=== PATIENT | female | born 1960 | race Asian ===

== ENCOUNTER 2018-01-21 22:34 | Emergency (ER) | payer SELFPAY ==
[2018-01-22] MEDS: SODIUM CHLORIDE 0.9% 1L BAG IV* (00:03)
[2018-01-22] MEDS: CEFTRIAXONE 1 GM/50 ML (PMX) 50 ML IVPB (00:03)
[2018-01-22] MEDS: ACETAMINOPHEN 325 MG TAB PO (00:04)
[2018-01-22 00:15] LABS: ADD MAN DIFF? NO
[2018-01-22] MEDS ORDERED: FLUORESCEIN STRIP (00:15)
[2018-01-22 00:17] LABS: BASOPHILS % 0.4 % (0.0-2.0); EOSINOPHILS # 0.1 10^3/ul (0.0-0.5); EOSINOPHILS % 1.7 % (0.0-7.0); HEMATOCRIT 43.1 % (37.0-47.0); HEMOGLOBIN 14.3 g/dl (12.0-16.0); LYMPHOCYTES # 1.6 10^3/ul (0.8-2.9); LYMPHOCYTES % 20.7 % (15.0-51.0); MEAN CORPUSCULAR HEMOGLOBIN 28.7 pg (29.0-33.0); MEAN CORPUSCULAR HGB CONC 33.2 g/dl (32.0-37.0); MEAN CORPUSCULAR VOLUME 86.4 fl (82.0-101.0); MEAN PLATELET VOLUME 10.6 fl (7.4-10.4); MONOCYTE # 0.5 10^3/ul (0.3-0.9); MONOCYTES % 6.7 % (0.0-11.0); NEUTROPHIL # 5.5 10^3/ul (1.6-7.5); NEUTROPHILS % 70.4 % (39.0-77.0); PLATELET COUNT 226 10^3/UL (140-415); RED BLOOD COUNT 4.99 10^6/ul (4.20-5.40); RED CELL DISTRIBUTION WIDTH 12.8 % (11.5-14.5)
[2018-01-22 00:17] LABS: WHITE BLOOD COUNT 7.9 10^3/ul (4.8-10.8)
[2018-01-22] MEDS: FLUORESCEIN STRIP RIGHT EYE (00:28)
[2018-01-22] MEDS: TETRACAINE 0.5% 4 ML OPH RIGHT EYE (00:29)
[2018-01-22 00:36] LABS: ALANINE AMINOTRANSFERASE 44 IU/L (13-69); ALBUMIN 4.9 g/dl (3.3-4.9); ALBUMIN/GLOBULIN RATIO 1.25; ALKALINE PHOSPHATASE 112 IU/L (42-121); ANION GAP 19 (8-16); ASPARTATE AMINO TRANSFERASE 32 IU/L (15-46); BILIRUBIN,INDIRECT 0.3 mg/dl (0-1.1); BILIRUBIN,TOTAL 0.3 mg/dl (0.2-1.3); BLOOD UREA NITROGEN 15 mg/dl (7-20); CALCIUM 9.7 mg/dl (8.4-10.2); CARBON DIOXIDE 27 mmol/L (21-31); CHLORIDE 105 mmol/L (97-110); CREATININE 0.55 mg/dl (0.44-1.00); GLUCOSE 152 mg/dl (70-220); LIPASE 152 U/L (23-300); POTASSIUM 3.6 mmol/L (3.5-5.1); SODIUM 147 mmol/L (135-144); TOTAL PROTEIN 8.8 g/dl (6.1-8.1)
[2018-01-22 00:37] LABS: LACTIC ACID 1.4 mmol/L (0.5-2.0)
[2018-01-22 00:47] LABS: TROPONIN-I 0.021 ng/ml (0.00-0.12)
[2018-01-22 00:49] LABS: PROTIME 12.2 Sec (11.9-14.9)
[2018-01-22 00:50] LABS: PARTIAL THROMBOPLASTIN TIME 32.5 Sec (25.0-35.0)
[2018-01-22] MEDS: ENALAPRILAT 1.25 MG INJ IV (01:28)
[2018-01-22 02:01] LABS: HEMOGLOBIN A1C 5.9 % (0-5.9)
[2018-01-22 02:14] LABS: ADD UMIC YES; UR ASCORBIC ACID NEGATIVE (NEGATIVE); UR BILIRUBIN (Dip) NEGATIVE (NEGATIVE); UR BLOOD (Dip) 1+ mg/dL (NEGATIVE); UR CLARITY CLEAR (CLEAR); UR COLOR STRAW (YELLOW); UR GLUCOSE (Dip) NEGATIVE (NEGATIVE); UR KETONES (Dip) NEGATIVE (NEGATIVE); UR LEUKOCYTE ESTERASE (Dip) TRACE Leu/ul (NEGATIVE); UR NITRITE (Dip) NEGATIVE (NEGATIVE); UR RBC 1 /HPF (0-5); UR SPECIFIC GRAVITY (Dip) 1.008 (1.003-1.030); UR TOTAL PROTEIN (Dip) NEGATIVE (NEGATIVE); UR UROBILINOGEN (Dip) NEGATIVE (NEGATIVE); UR WBC 4 /HPF (0-5)
== END 2018-01-22 01:32 | disposition home or self-care (01) ==
LOC: E/R 01-22 01:32
DX: H26.9 Unspecified cataract (principal); I10 Essential (primary) hypertension; R51 Headache; R07.9 Chest pain, unspecified
CPT/HCPCS: 36415; 70450; 71045; 76536; 80053; 81001; 83036; 83605; 83690; 84484; 85025; 85610; 85730; 87040; 87086; 87400; 93005; 96374; 99285-25